=== PATIENT | female | born 1960 | race Hispanic/Latino ===

== ENCOUNTER 2021-01-16 04:23 | Inpatient (IN) | payer SELFPAY ==
[~2021-01-16] VITALS: Ht 152.4 cm; Wt 57.6 kg
[2021-01-16 08:53] VITALS: BP 129/78
[2021-01-16 11:03] LABS: BASOPHILS # (AUTO) 0.1 (0.0-0.1); BASOPHILS % 0.3 % (0.0-1.0); EOSINOPHILS % 0.1 % (0.0-6.0); HEMATOCRIT 38.6 % (34.2-44.1); HEMOGLOBIN 12.5 g/dL (12.0-16.0); LYMPHOCYTES # (AUTO) 0.7 (1.0-3.2); LYMPHOCYTES % 4.3 % (18.0-39.1); MEAN CORPUSCULAR HEMOGLOBIN 28.1 pg (28-32); MEAN CORPUSCULAR HGB CONC 32.4 g/dL (31-35); MEAN CORPUSCULAR VOLUME 86.7 fL (81-99); MONOCYTES % 5.9 % (4.4-11.3); NEUTROPHILS # (AUTO) 15.4 (2.1-6.9); NEUTROPHILS % 88.3 % (38.7-80.0); PLATELET COUNT 173 x10e3/uL (140-360); RED BLOOD COUNT 4.45 x10e6/uL (3.6-5.1); RED CELL DISTRIBUTION WIDTH 14.2 % (11.7-14.4)
[2021-01-16 11:19] LABS: CALCIUM 9.6 mg/dL (8.4-10.2); CREATININE, SERUM 0.78 mg/dL (0.57-1.11)
[2021-01-16 11:57] VITALS: BP 126/70
[2021-01-16 12:22] VITALS: BP 126/70
[2021-01-16] MEDS ORDERED: SODIUM CHLORIDE 0.9% 50ML 50 ML ONE ×2 (14:53→15:48)
[2021-01-16] MEDS ORDERED: IOPAMIDOL 370 MG/ML 200 ML INFUS..BTL INJ ONE (15:48)
[2021-01-16 16:30] VITALS: BP 114/58
[2021-01-16] MEDS: MORPHINE SULFATE INJ 2 MG/ML SYR IV PRN ×2 (17:10→22:14)
[2021-01-16] MEDS: CEFTRIAXONE 1 GM in SODIUM CHLORIDE 0.9% 50ML 50 ML IV SCH (17:16)
[2021-01-16 20:01] VITALS: BP 120/74
[2021-01-16] MEDS: LEVALBUTEROL HCL SOLN NEBU 0.63 MG/3 ML NEB INH PRN (22:30)
[2021-01-16 23:17] LABS: BASOPHILS # (AUTO) 0.1 (0.0-0.1); BASOPHILS % 0.5 % (0.0-1.0); EOSINOPHILS # (AUTO) 0.3 (0.0-0.4); EOSINOPHILS % 2.2 % (0.0-6.0); HEMATOCRIT 34.9 % (34.2-44.1); HEMOGLOBIN 11.3 g/dL (12.0-16.0); LYMPHOCYTES # (AUTO) 1.4 (1.0-3.2); LYMPHOCYTES % 10.9 % (18.0-39.1); MEAN CORPUSCULAR HEMOGLOBIN 28.3 pg (28-32); MEAN CORPUSCULAR HGB CONC 32.4 g/dL (31-35); MEAN CORPUSCULAR VOLUME 87.5 fL (81-99); MONOCYTES # (AUTO) 1.2 (0.2-0.8); MONOCYTES % 9.1 % (4.4-11.3); NEUTROPHILS # (AUTO) 9.9 (2.1-6.9); NEUTROPHILS % 76.5 % (38.7-80.0); PLATELET COUNT 185 x10e3/uL (140-360); RED BLOOD COUNT 3.99 x10e6/uL (3.6-5.1); RED CELL DISTRIBUTION WIDTH 14.2 % (11.7-14.4)
[2021-01-16 23:59] VITALS: BP 109/63
[2021-01-17] VITALS (7 sets, daily range): BP systolic 100–125; BP diastolic 60–80
[2021-01-17] MEDS: MORPHINE SULFATE INJ 2 MG/ML SYR IV PRN ×3 (04:31→23:40)
[2021-01-17 06:00] LABS: ANION GAP 17.4 mmol/L (8-16); CALCIUM 9.2 mg/dL (8.4-10.2); CREATININE, SERUM 0.66 mg/dL (0.57-1.11); POTASSIUM 3.4 mmol/L (3.5-5.1)
[2021-01-17 08:43] LABS: INR 1.14; PROTHROMBIN TIME 14.8 seconds (11.9-14.5)
[2021-01-17] MEDS: CEFTRIAXONE 1 GM in SODIUM CHLORIDE 0.9% 50ML 50 ML IV SCH (18:04)
[2021-01-18] VITALS (10 sets, daily range): BP systolic 110–150; BP diastolic 63–81
[2021-01-18] MEDS: MORPHINE SULFATE INJ 2 MG/ML SYR IV PRN ×3 (05:59→23:06)
[2021-01-18] MEDS ORDERED: GADOBENATE DIMEGLUMINE 1 ML IV ONE (09:09)
[2021-01-18] MEDS: CEFTRIAXONE 1 GM in SODIUM CHLORIDE 0.9% 50ML 50 ML IV SCH (18:00)
[2021-01-19] VITALS (8 sets, daily range): BP systolic 100–127; BP diastolic 63–82
[2021-01-19] MEDS: MORPHINE SULFATE INJ 2 MG/ML SYR IV PRN ×3 (06:18→21:01)
[2021-01-19] MEDS: BISACODYL 5 MG TAB EC PO PRN ×2 (13:55→21:20)
[2021-01-19] MEDS: CEFTRIAXONE 1 GM in SODIUM CHLORIDE 0.9% 50ML 50 ML IV SCH (17:26)
[2021-01-19] MEDS: LEVALBUTEROL HCL SOLN NEBU 0.63 MG/3 ML NEB INH PRN (20:30)
[2021-01-20] VITALS (8 sets, daily range): BP systolic 92–133; BP diastolic 52–101
[2021-01-20 06:06] LABS: BASOPHILS % 0.4 % (0.0-1.0); EOSINOPHILS # (AUTO) 0.2 (0.0-0.4); EOSINOPHILS % 2.7 % (0.0-6.0); HEMATOCRIT 31.7 % (34.2-44.1); HEMOGLOBIN 10.3 g/dL (12.0-16.0); LYMPHOCYTES # (AUTO) 1.1 (1.0-3.2); LYMPHOCYTES % 20.4 % (18.0-39.1); MEAN CORPUSCULAR HEMOGLOBIN 28.2 pg (28-32); MEAN CORPUSCULAR HGB CONC 32.5 g/dL (31-35); MEAN CORPUSCULAR VOLUME 86.8 fL (81-99); MONOCYTES # (AUTO) 0.6 (0.2-0.8); MONOCYTES % 11.3 % (4.4-11.3); NEUTROPHILS # (AUTO) 3.6 (2.1-6.9); NEUTROPHILS % 64.3 % (38.7-80.0); PLATELET COUNT 164 x10e3/uL (140-360); RED BLOOD COUNT 3.65 x10e6/uL (3.6-5.1); RED CELL DISTRIBUTION WIDTH 13.9 % (11.7-14.4)
[2021-01-20 06:43] LABS: ALBUMIN 3.3 g/dL (3.5-5.0); ALBUMIN/GLOBULIN RATIO 0.9 (0.8-2.0); ANION GAP 17.6 mmol/L (8-16); CALCIUM 8.7 mg/dL (8.4-10.2); CREATININE, SERUM 0.58 mg/dL (0.57-1.11); MAGNESIUM 1.9 MG/DL (1.3-2.1); POTASSIUM 3.6 mmol/L (3.5-5.1)
[2021-01-20] MEDS: CEFTRIAXONE 1 GM in SODIUM CHLORIDE 0.9% 50ML 50 ML IV SCH (17:44)
[2021-01-20] MEDS: MORPHINE SULFATE INJ 2 MG/ML SYR IV PRN ×2 (18:21→22:26)
[2021-01-20] MEDS: LEVALBUTEROL HCL SOLN NEBU 0.63 MG/3 ML NEB INH PRN (20:10)
[2021-01-21] VITALS (8 sets, daily range): BP systolic 114–129; BP diastolic 73–85
[2021-01-21] MEDS: MORPHINE SULFATE INJ 2 MG/ML SYR IV PRN ×3 (04:03→23:03)
[2021-01-21] MEDS: ONDANSETRON HCL INJ 2MG/ML 2ML 2 MG/ML VIAL IV PRN ×3 (08:47→23:06)
[2021-01-21] MEDS ORDERED: KETAMINE HCL INJ 50 MG/ML 10 ML VIAL ONE (13:09)
[2021-01-21] MEDS ORDERED: MIDAZOLAM HCL 2 MG/2 ML VIAL ONE (13:09)
[2021-01-21] MEDS ORDERED: POVIDONE IODINE 0.05% 0.05 % ML PO ONE (13:24)
[2021-01-21] MEDS ORDERED: DEXAMETHASONE SOD PHOS INJ 4 MG/ML SDV ONE (13:24)
[2021-01-21] MEDS ORDERED: LIDOCAINE HCL 2% LOCAL INJ 5 ML SDV VIAL INJ ONE (13:24)
[2021-01-21] MEDS ORDERED: ONDANSETRON HCL INJ 2MG/ML 2ML 2 MG/ML VIAL ONE (13:24)
[2021-01-21] MEDS ORDERED: LIDOCAINE 1% W/EPINEPHRINE 20 ML VIAL ONE (13:24)
[2021-01-21] MEDS ORDERED: PROPOFOL IV EMULSION 10 MG/ML 20 ML VIAL ONE (13:24)
[2021-01-21] MEDS ORDERED: HYDROCODONE/APAP 7.5MG-325MG 1 EA TAB PO PRN (14:15)
[2021-01-21] MEDS: CEFTRIAXONE 1 GM in SODIUM CHLORIDE 0.9% 50ML 50 ML IV SCH (17:30)
[2021-01-22] VITALS (7 sets, daily range): BP systolic 122–138; BP diastolic 78–93
[2021-01-22] MEDS: ONDANSETRON HCL INJ 2MG/ML 2ML 2 MG/ML VIAL IV PRN ×3 (04:00→19:08)
[2021-01-22] MEDS: MORPHINE SULFATE INJ 2 MG/ML SYR IV PRN ×3 (04:00→19:08)
[2021-01-22] MEDS: BISACODYL 5 MG TAB EC PO PRN (11:07)
[2021-01-22] MEDS: METHYLPREDNISOLONE SOD SUCC 40 MG/ML VIAL 1ML IV SCH ×2 (12:10→21:00)
[2021-01-22] MEDS: ALBUTEROL/IPRATROPIUM 3 ML NEB NEB SCH ×3 (13:00→19:50)
[2021-01-22] MEDS: CEFTRIAXONE 1 GM in SODIUM CHLORIDE 0.9% 50ML 50 ML IV SCH (16:37)
[2021-01-22] MEDS: BUDESONIDE 0.25 MG/2 ML NEB NEB SCH (19:35)
[2021-01-23] VITALS (8 sets, daily range): BP systolic 122–143; BP diastolic 59–91
[2021-01-23] MEDS: ALBUTEROL/IPRATROPIUM 3 ML NEB NEB SCH ×4 (01:30→19:00)
[2021-01-23] MEDS: ONDANSETRON HCL INJ 2MG/ML 2ML 2 MG/ML VIAL IV PRN (04:00)
[2021-01-23] MEDS: MORPHINE SULFATE INJ 2 MG/ML SYR IV PRN (04:00)
[2021-01-23] MEDS: BUDESONIDE 0.25 MG/2 ML NEB NEB SCH ×2 (07:47→19:00)
[2021-01-23] MEDS: METHYLPREDNISOLONE SOD SUCC 40 MG/ML VIAL 1ML IV SCH (08:32)
[2021-01-23] MEDS: CEFTRIAXONE 1 GM in SODIUM CHLORIDE 0.9% 50ML 50 ML IV SCH (16:45)
== END 2021-01-23 21:31 | disposition home or self-care (01) | DRG 579 ==
LOC: MED/SURG3 09:08
PROVIDERS: ADMIT Family Medicine; ATTEND Family Medicine
PROC: 02HV33Z Insertion of Infusion Device into Superior Vena Cava, Percutaneous Approach (ICD-10-PCS; 2021-01-16)
PROC: 0W993ZZ Drainage of Right Pleural Cavity, Percutaneous Approach (ICD-10-PCS; 2021-01-17)
PROC: 07B20ZX Excision of Left Neck Lymphatic, Open Approach, Diagnostic (ICD-10-PCS; 2021-01-21)
PROC: 0HBT0ZZ Excision of Right Breast, Open Approach (ICD-10-PCS; principal; 2021-01-21 12:50)
DX: C50.911 Malignant neoplasm of unspecified site of right female breast (principal); J18.8 Other pneumonia, unspecified organism; J96.01 Acute respiratory failure with hypoxia; C78.1 Secondary malignant neoplasm of mediastinum; J90 Pleural effusion, not elsewhere classified; C79.51 Secondary malignant neoplasm of bone; C83.30 Diffuse large B-cell lymphoma, unspecified site; N63.10 Unspecified lump in the right breast, unspecified quadrant; E87.6 Hypokalemia; Z20.822 Contact with and (suspected) exposure to COVID-19
CPT/HCPCS: 32555; 36415; 36569; 70553; 71045; 71260; 74470; 78306; 80048; 80053; 82378; 83735; 83880; 85025; 85610; 88112; 88304; 88305; 88307; 88342; 93306; 94640; 99251; A9503; J0456; J0696; J1100; J2001; J2250; J2270; J2405; J2920; J7050; Q9967; U0002